=== PATIENT | female | born 1985 | race Caucasian/White ===

== ENCOUNTER 2016-07-26 12:26 | Emergency (ER) | payer MEDICAID ==
[2016-07-26 12:33] VITALS: BP 137/73
[2016-07-26] MEDS ORDERED: DIPH/PERTUSS(ACELL)/TETANUS VAC/PF 0.5 ML SYR (>=10YO) IM ONE (13:09)
--- NOTE | 2016-07-26 13:11 | ER Document Report ---
ED Medical Screen (RME) - General Chief Complaint: Cat Bite Stated Complaint: ATTACKED BY CAT/MULTIPLE SCRATCHES Time Seen by Provider: 07/26/16 12:57 Mode of Arrival: Ambulatory Information source: Patient Notes: This is a 31-year-old female who presents with multiple scratches to her face and neck from a cat. These injuries occurred yesterday morning. Patient states that this cat is a new pet, and that it is at least 3 years old and has had no immunizations. Patient had picked up the cat by the scruff of the neck, and the cat reacted by cleaning onto her face and neck. This happened so quickly that patient is unsure if the cat may have bitten her neck. Today she awoke with painful swelling and redness to the wound on the left anterior neck. No fevers or chills. No difficulty swallowing or breathing. TRAVEL OUTSIDE OF THE [place] IN LAST 30 DAYS: No - Related Data Allergies/Adverse Reactions: erythromycin base [Erythromycin Base] Allergy (Verified 07/26/16 12:42) upset stomach Past Medical History Renal/ Medical History: Denies: Hx Peritoneal Dialysis Past Surgical History: Reports: Hx Cholecystectomy - Immunizations Hx Diphtheria, Pertussis, Tetanus Vaccination: Yes - states already received Physical Exam - Vital signs Vitals: Temp Pulse Resp BP Pulse Ox 98.7 F 104 H 16 137/73 H 98 07/26/16 12:30 07/26/16 12:30 07/26/16 12:30 07/26/16 12:30 07/26/16 12:30 - Notes Notes: Patient has several scabbed superficial scratch mederos across the right side of her face. There is a tiny puncture wound noted to left anterior neck with surrounding edema, erythema, induration, and TTP. Course - Vital Signs Vital signs: Temp Pulse Resp BP Pulse Ox 98.7 F 104 H 16 137/73 H 98 07/26/16 12:30 07/26/16 12:30 07/26/16 12:30 07/26/16 12:30 07/26/16 12:30
[2016-07-26] MEDS ORDERED: AMPICILLIN SOD/SULBACTAM 3 GM VIAL IV ONE (13:46)
[2016-07-26] MEDS ORDERED: OXYCODONE-ACETAMINOPHEN 5-325 MG TABLET PO ONE (14:09)
[2016-07-26 14:18] LABS: ABSOLUTE BASOPHILS # (AUTO) 0.1 10^3/uL (0.0-0.2); ABSOLUTE EOSINOPHILS # (AUTO) 0.2 10^3/uL (0.0-0.6); ABSOLUTE LYMPHOCYTES (AUTO) 2.4 10^3/uL (0.5-4.7); ABSOLUTE MONOCYTES (AUTO) 0.6 10^3/uL (0.1-1.4); ABSOLUTE NEUT (AUTO) 8.5 10^3/uL (1.7-8.2); BASOPHILS % (AUTO) 0.4 % (0-2); EOSINOPHILS % (AUTO) 1.4 % (0-6); HEMATOCRIT 39.5 % (36.0-47.0); HEMOGLOBIN 12.9 g/dL (12.0-15.5); HGB HCT DIFFERENCE -0.8; LYMPHOCYTES % (AUTO) 20.4 % (13-45); MEAN CORPUSCULAR HEMOGLOBIN 26.9 pg (27.0-33.4); MEAN CORPUSCULAR HGB CONC 32.8 g/dL (32.0-36.0); MEAN CORPUSCULAR VOLUME 82 fl (80-97); RED CELL DISTRIBUTION WIDTH 15.6 % (11.5-14.0); SEGMENTED NEUTROPHILS % (AUTO) 72.8 % (42-78); WHITE BLOOD COUNT 11.7 10^3/uL (4.0-10.5)
[2016-07-26 14:29] LABS: ALANINE AMINOTRANSFERASE 26 U/L (9-52); ALBUMIN 4.7 g/dL (3.5-5.0); ALKALINE PHOSPHATASE 80 U/L (38-126); ANION GAP 15 (5-19); ASPARTATE AMINO TRANSFERASE 21 U/L (14-36); BILIRUBIN,DIRECT 0.2 mg/dL (0.0-0.4); BILIRUBIN,TOTAL 1.6 mg/dL (0.2-1.3); BLOOD UREA NITROGEN 8 mg/dL (7-20); CALCIUM 9.7 mg/dL (8.4-10.2); CARBON DIOXIDE 25 mmol/L (22-30); CHLORIDE 103 mmol/L (98-107); CREATININE RESULT 0.65 mg/dL (0.52-1.25); GLUCOSE 99 mg/dL (75-110); POTASSIUM 4.1 mmol/L (3.6-5.0); SODIUM 142.9 mmol/L (137-145); TOTAL PROTEIN 7.9 g/dL (6.3-8.2)
--- NOTE | 2016-07-26 14:31 | ER Document Report ---
ED General - General Chief Complaint: Cat Bite Stated Complaint: ATTACKED BY CAT/MULTIPLE SCRATCHES Time Seen by Provider: 07/26/16 12:57 Mode of Arrival: Ambulatory Information source: Patient Notes: 31 yr old female presents with complaints of cat scratch to the face yesterday with redness and pain today. denies any fevers or chills. 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 IN LAST 30 DAYS: No - HPI Onset: Yesterday Onset/Duration: Sudden Quality of pain: Achy Severity: Mild Pain Level: 1 Associated symptoms: Other Exacerbated by: Denies Relieved by: Denies Similar symptoms previously: No Recently seen / treated by doctor: No - Related Data Allergies/Adverse Reactions: erythromycin base [Erythromycin Base] Allergy (Verified 07/26/16 12:42) upset stomach Past Medical History - General Information source: Patient - Social History Smoking Status: Never Smoker Cigarette use (# per day): No Chew tobacco use (# tins/day): No Smoking Education Provided: No Family History: Reviewed & Not Pertinent Patient has suicidal ideation: No Patient has homicidal ideation: No Renal/ Medical History: Denies: Hx Peritoneal Dialysis Past Surgical History: Reports: Hx Cholecystectomy - Immunizations Hx Diphtheria, Pertussis, Tetanus Vaccination: Yes - states already received Review of Systems - Review of Systems Notes: REVIEW OF SYSTEMS: CONSTITUTIONAL : Denies fever, chills, or sweats. Denies recent illness. EENT: facial swelling CARDIOVASCULAR: Denies chest pain. Denies palpitations or racing or irregular heart beat. Denies ankle edema. RESPIRATORY: Denies cough, cold, or chest congestion. Denies shortness of breath, difficulty breathing, or wheezing. GASTROINTESTINAL: Denies abdominal pain or distention. Denies nausea, vomiting , or diarrhea. Denies blood in vomitus, stools, or per rectum. Denies black, tarry stools. Denies constipation. GENITOURINARY: Denies difficulty urinating, painful urination, burning, frequency, blood in urine, or discharge. FEMALE GENITOURINARY: Denies vaginal bleeding, heavy or abnormal periods, irregular periods. Denies vaginal discharge or odor. MUSCULOSKELETAL: Denies back or neck pain or stiffness. Denies joint pain or swelling. SKIN: scratches to face HEMATOLOGIC : Denies easy bruising or bleeding. LYMPHATIC: Denies swollen, enlarged glands. NEUROLOGICAL: Denies confusion or altered mental status. Denies passing out or loss of consciousness. Denies dizziness or lightheadedness. Denies headache. Denies weakness or paralysis or loss of use of either side. Denies problems with gait or speech. Denies sensory loss, numbness, or tingling. Denies seizures. PSYCHIATRIC: Denies anxiety or stress. Denies depression, suicidal ideation, or homicidal ideation. PHYSICAL EXAMINATION: GENERAL: Well-appearing, well-nourished and in no acute distress. HEAD: left facial swelling , erythema under hte left chin EYES: Pupils equal round and reactive to light, extraocular movements intact, conjunctiva are normal. ENT: Nares patent, oropharynx clear without exudates. Moist mucous membranes. NECK: Normal range of motion, supple without lymphadenopathy LUNGS: Breath sounds clear to auscultation bilaterally and equal. No wheezes rales or rhonchi. HEART: Regular rate and rhythm without murmurs ABDOMEN: Soft, nontender, nondistended abdomen. No guarding, no rebound. No masses appreciated. Female : deferred Musculoskeletal: Normal range of motion, no pitting or edema. No cyanosis. NEUROLOGICAL: Cranial nerves grossly intact. Normal speech, normal gait. Normal sensory, motor exams PSYCH: Normal mood, normal affect. SKIN: multiple scratches ot the face ALL OTHER SYSTEMS REVIEWED AND NEGATIVE. Dictation was performed using [employer] voice recognition software Physical Exam - Vital signs Vitals: Temp Pulse Resp BP Pulse Ox 98.7 F 104 H 16 137/73 H 98 07/26/16 12:30 07/26/16 12:30 07/26/16 12:30 07/26/16 12:30 07/26/16 12:30 Course - Re-evaluation Re-evalutation: 07/26/16 14:45 pt noted ot have erythema around the scratches, will require antibiotcs, iv initially then orally for outpatient. pt otherwise well appearing, afebrile no elevated wbc count no risk of rabies infection After performing a Medical Screening Examination, I estimate there is LOW risk for OPEN FRACTURE, COMPARTMENT SYNDROME, TENDON RUPTURE, ACUTE NEUROVASCULAR INJURY, or RETAINED FOREIGN BODY, thus I consider the discharge disposition reasonable. Also, there is no evidence or peritonitis, sepsis, or toxicity. I have reevaluated this patient multiple times and no significant life threatening changes are noted. The patient and I have discussed the diagnosis and risks, and we agree with discharging home with close follow-up with the understanding that symptoms and presentations can change. We also discussed returning to the Emergency Department immediately if new or worsening symptoms occur. We have discussed the symptoms which are most concerning (e.g., changing or worsening pain, fever, numbness, weakness, cool or painful digits) that necessitate immediate return. - Vital Signs Vital signs: Temp Pulse Resp BP Pulse Ox 98.7 F 104 H 16 137/73 H 98 07/26/16 12:30 07/26/16 12:30 07/26/16 12:30 07/26/16 12:30 07/26/16 12:30 - Laboratory Result Diagrams: 07/26/16 14:00 07/26/16 14:00 Laboratory results interpreted by me: 07/26/16 07/26/16 14:00 14:00 WBC 11.7 H MCH 26.9 L RDW 15.6 H Absolute Neutrophils 8.5 H Total Bilirubin 1.6 H Discharge - Discharge Clinical Impression: Cat scratch Cellulitis Qualifiers: Site of cellulitis: face Qualified Code(s): L03.211 - Cellulitis of face Condition: Stable Disposition: HOME, SELF-CARE Instructions: Cat Scratch Fever ([facility]), Cellulitis ([facility]) Additional Instructions: Follow up with your physician tomorrow for further care or return to the ED IMMEDIATELY if symptoms worsen or new concerns occur. If you cannot afford to follow up with your primary care physician a list of low cost clinics have been provided at the end of your discharge papers as well. Prescriptions: Amox Tr/Potassium Clavulanate [Augmentin 875-125 Tablet] 1 tab PO BID 10 Days Oxycodone HCl/Acetaminophen [Percocet 5-325 mg Tablet] 1 - 2 tab PO Q4H PRN #15 tablet PRN Reason:
== END 2016-07-26 15:46 | disposition home or self-care (01) ==
LOC: ER 12:26
DX: S00.81XA Abrasion of other part of head, initial encounter (principal); L03.211 Cellulitis of face; W55.03XA Scratched by cat, initial encounter; Z90.49 Acquired absence of other specified parts of digestive tract; Z88.3 Allergy status to other anti-infective agents
CPT/HCPCS: 99283; 96374; 36415; 87040; 85025; 80053; J0295

== ENCOUNTER 2017-11-22 19:51 | Emergency (ER) | payer MEDICAID ==
[2017-11-22] MEDS ORDERED: HYDROCODONE/ACETAMINOPHEN 7.5-325 MG TABLET PO ONE (21:55)
--- NOTE | 2017-11-22 22:41 | ER Document Report ---
HPI - HPI Patient complains to provider of: ear pain Pain Level: 4 Context: Patient is a 32-year-old female presenting to the emergency department complaining of pain behind her right ear. Patient states she did start wearing new glasses 2 weeks ago. Patient states pain behind her right ear has now made her entire head hurt which is why she presents to the emergency department. Patient denies any fever, URI symptoms, swimming, nausea, vomiting, diarrhea, chest pain, abdominal pain, ear discharge. Although patient states she has a history of migraines she states this headache increases upon palpation behind right ear and feels unlike her migraines. Past medical history: Migraines Medications: Claritin, Flonase, IUD Allergies: Azithromycin - CONSTITUTIONAL Constitutional: DENIES: Fever, Chills - EENT EENT: REPORTS: Ear Pain. DENIES: Sore Throat, Eye problems - NEURO Neurology: REPORTS: Headache. DENIES: Weakness, Vision blurred, Dizzinesss / Vertigo - REPRODUCTIVE Reproductive: REPORTS: : Past Medical History - General Information source: Patient - Social History Smoking Status: Unknown if Ever Smoked Chew tobacco use (# tins/day): No Frequency of alcohol use: None Drug Abuse: None Lives with: Family Family History: Reviewed & Not Pertinent Patient has suicidal ideation: No Patient has homicidal ideation: No Renal/ Medical History: Denies: Hx Peritoneal Dialysis Past Surgical History: Reports: Hx Cholecystectomy - Immunizations Hx Diphtheria, Pertussis, Tetanus Vaccination: Yes - states already received Vertical Provider Document - CONSTITUTIONAL Notes: GENERAL: Alert, interacts well. No acute distress. HEAD: Normocephalic, atraumatic. EYES: Pupils equal, round, and reactive to light. Extraocular movements intact. ENT: Oral mucosa moist, tongue midline. TM's intact, no erythema or bulging. Canals within normal limits no debris or swelling. No mastoid point tenderness behind right or left ear. No tragal tenderness right or left ear. Small area of erythema 1cm x 1cm directly behind right ear directly where ear tissue meets the scalp. painful upon palpation without fluctuance or induration noted. NECK: Full range of motion. Supple. Trachea midline. LUNGS: Clear to auscultation bilaterally, no wheezes, rales, or rhonchi. No respiratory distress. HEART: Regular rate and rhythm. No murmur ABDOMEN: Soft, non-tender. Non-distended. Bowel sounds present in all 4 quadrants. EXTREMITIES: Moves all 4 extremities spontaneously. No edema, normal radial and dorsalis pedis pulses bilaterally. No cyanosis. BACK: no cervical, thoracic, lumbar midline tenderness. No saddle anesthesia, normal distal neurovascular exam. NEUROLOGICAL: Alert and oriented x3. Normal speech. [cranial nerves II through XII grossly intact]. PSYCH: Normal affect, normal mood. SKIN: Warm, dry, normal turgor. No rashes or lesions noted. - INFECTION CONTROL TRAVEL OUTSIDE OF THE [place] IN LAST 30 DAYS: No Course - Re-evaluation Re-evalutation: Discussed at length with patient this is potentially a sebaceous cyst. Suspicious this could turn into an abscess. At this point there is no indurated or fluctuant areas. Minor erythema seen. discussed with patient the antibiotics will be prescribed should the redness swelling get any worse but at this time there is no need for them. Should patient have to start antibiotics, develop a fever, have increased pain she should return to the emergency department. This was all discussed with patient. - Vital Signs Vital signs: Temp Pulse Resp BP Pulse Ox 98.7 F 99 16 147/74 H 99 11/22/17 20:20 11/22/17 20:20 11/22/17 20:20 11/22/17 20:20 11/22/17 20:20 Discharge - Discharge Clinical Impression: Abscess, Sebaceous cyst Condition: Stable Disposition: HOME, SELF-CARE Instructions: Cephalexin ([facility]) Additional Instructions: As we discussed you have been seen in the ED for swelling behind your right ear. Likely this is a sebaceous cyst. As we discussed at this time there are no signs of infection. You should use warm compresses to this area for the next few days as a pocket of infection may develop. You should start the antibiotics prescribed only if the redness or swelling increases. Return to the emergency room for any other concerning symptom Prescriptions: Cephalexin Monohydrate [Keflex 500 mg Capsule] 500 mg PO BID 7 Days #14 capsule Referrals: EDD PEÑA FNP-C [Primary Care Provider] - Follow up as needed
[2017-11-22 23:01] VITALS: BP 124/60
== END 2017-11-22 23:01 | disposition home or self-care (01) ==
LOC: ER 19:51
DX: L72.3 Sebaceous cyst (principal); H92.01 Otalgia, right ear; R51 Headache; Z90.49 Acquired absence of other specified parts of digestive tract; Z97.5 Presence of (intrauterine) contraceptive device
CPT/HCPCS: 99282